=== PATIENT | female | born 1980 | race African-American/Black ===

== ENCOUNTER 2019-05-08 12:35 | Emergency (ER) | payer SELFPAY ==
[~2019-05-08] VITALS: Ht 170.2 cm; Wt 75.7 kg
[2019-05-08 12:40] VITALS: BP 116/78
[2019-05-08] MEDS ORDERED: LIDOCAINE 1% PF 2 ML VIAL. INJ ONE (13:45)
[2019-05-08] MEDS ORDERED: MUPI22OI2 TP (14:12)
--- NOTE | 2019-05-08 14:13 | PHYS DOC ---
Past Medical History Past Medical History: No Pertinent History, Hypothyroid Past Surgical History: No Surgical History Alcohol Use: Occasionally Drug Use: None Adult General Chief Complaint Chief Complaint: VAGINAL PROBLEM HPI HPI Patient is a 38 year old AA female who presents to the emergency department with complaints of a sore tender area near her labia for the last 2 days. Patient denies any drainage, or bleeding from the site. She denies any concerns of this sexually transmitted infection. Currently she rates her discomfort a 9 out of 10 on the pain scale, there are no alleviating factors, the pain increases if it is touched. Review of Systems Review of Systems Constitutional: Denies fever or chills [] Eyes: Denies redness, or eye pain [] HENT: Denies nasal congestion or sore throat [] Respiratory: Denies cough or shortness of breath [] Cardiovascular: No additional information not addressed in HPI [] GI: Denies abdominal pain, nausea, vomiting, or diarrhea [] : Denies dysuria or hematuria; see history of present illness [] Integument: see history of present illness Neurologic: Denies headache, focal weakness or sensory changes [] Current Medications Current Medications Current Medications Medications (Trade) Dose Ordered Sig/Miguel A Start Time Stop Time Status Last Admin Dose Admin Lidocaine HCl (Xylocaine-Mpf 1% 2ml Vial) 2 ml 1X ONCE 05/08/19 13:45 05/08/19 13:46 DC Allergies Allergies Allergies Coded Allergies Type Severity Reaction Last Updated Verified No Known Drug Allergies 09/04/15 No Physical Exam Physical Exam Constitutional: Well developed, well nourished, no acute distress, non-toxic appearance. [] HENT: Normocephalic, atraumatic, bilateral external ears normal, nose normal. [] Eyes: conjunctiva normal, no discharge. [] Neck: Normal range of motion, no stridor. [] Cardiovascular: Heart rate regular rhythm, no murmur [] Lungs & Thorax: Respirations even and unlabored, no retractions, no respiratory distress Skin: Warm, dry, no erythema; less than half centimeter diameter tender area noted to the inferior right labia with central pustule consistent with cutaneous abscess/ folliculitis Extremities: No cyanosis, ROM intact, no edema. [] Neurologic: Alert and oriented X 3, no focal deficits noted. [] Psychologic: Affect normal, judgement normal, mood normal. [] Current Patient Data Vital Signs Vital Signs Date Time Temp Pulse Resp B/P (MAP) Pulse Ox O2 Delivery O2 Flow Rate FiO2 05/08/19 12:40 98.4 66 15 116/78 (91) 94 Room Air 98.4 EKG EKG [] Radiology/Procedures Radiology/Procedures 1 mg 1% lidocaine was injected into the abscess site with a 25-gauge needle, a small amount of pus was drained from the area. Patient tolerated procedure well, reports relief after pus was drained.[] Course & Med Decision Making Course & Med Decision Making Pertinent Labs and Imaging studies reviewed. (See chart for details) dx: folliculitis prescription for mupirocin ointment. Pt discouraged from shaving pubic region follow up with pcp if sx persist, return to the ER if sx worsen Patient verbalized an understanding of home care, medications, follow-up, and return to ED instructions and was in agreement with the plan of care. [] Dragon Disclaimer Dragon Disclaimer This electronic medical record was generated, in whole or in part, using a voice recognition dictation system. Departure Departure Impression: Primary Impression: Acute folliculitis Disposition: HOME, SELF-CARE Condition: STABLE Referrals: NO PCP (PCP) Patient Instructions: Folliculitis Additional Instructions: Apply warm moist packs 3x a day and as needed for comfort. Fill prescription and use as directed. Follow up with PCP next week, return to the ER if symptoms worsen. Scripts Mupirocin (MUPIROCIN OINTMENT) 22 Gm Oint...g. 1 BEENA TP TID for WOUND CARE for 7 Days, #1 TUBE 0 Refills Prov: [employer] [facility] 05/08/19 [employer] [facility] May 08, 2019 14:12
== END 2019-05-08 14:20 | disposition home or self-care (01) ==
LOC: ER 12:35
DX: L01.02 Bockhart's impetigo (principal); N76.4 Abscess of vulva; E03.9 Hypothyroidism, unspecified
CPT/HCPCS: 10060; 99283